=== PATIENT | female | born 1960 | race African-American/Black ===

== ENCOUNTER → 2023-05-07 | Outpatient (CLI) | payer OTHER | END | disposition home or self-care (01) | LOC: RESCLI 05-06 13:03 → RAD 10:42 | PROVIDERS: ATTEND Internal Medicine | DX: M16.0 Bilateral primary osteoarthritis of hip (principal); M17.12 Unilateral primary osteoarthritis, left knee; M77.52 Other enthesopathy of left foot and ankle; M19.072 Primary osteoarthritis, left ankle and foot; M25.572 Pain in left ankle and joints of left foot; M70.62 Trochanteric bursitis, left hip; Z71.89 Other specified counseling; Z98.890 Other specified postprocedural states; Z90.49 Acquired absence of other specified parts of digestive tract; Z79.899 Other long term (current) drug therapy ==

== ENCOUNTER → 2023-05-08 | Outpatient (CLI) | payer OTHER ==
[2023-05-08 08:07] LABS: BASO % 0.4 % (0.0-1.0); EOS # 0.1 10*3/uL (0.0-0.4); EOS % 1.9 % (1.0-4.0); HEMATOCRIT 39.8 % (37.0-47.0); LYMPH # 1.6 10*3/uL (1.3-4.4); LYMPH % 33.1 % (27.0-41.0); MEAN CELL VOLUME 85.2 fl (81.0-99.0); MEAN CORPUSCULAR HGB CONC 35.2 g/dl (33.0-37.0); MEAN PLATELET VOLUME 9.7 fl (9.6-12.3); MONO # 0.5 10*3/uL (0.1-1.0); MONO % 9.8 % (3.0-9.0); NEUT # 2.6 10*3/uL (2.3-7.9); NEUT % 54.6 % (47.0-73.0); PLATELET COUNT AUTOMATED 250 10*3/uL (130-400); RED BLOOD COUNT 4.67 10*6/uL (4.10-5.10); RED CELL DISTRI WIDTH 13.2 % (0-14.5); WHITE BLOOD COUNT 4.7 10*3/uL (4.8-10.8)
[2023-05-08 08:21] LABS: URINE CREATININE RANDOM 86.93 mg/dL
[2023-05-08 08:55] LABS: TOTAL PROTEIN 6.9 gm/dL (6.0-8.0); VITAMIN D, 25-HYDROXY 50.4 ng/mL (30-100)
== END | disposition home or self-care (01) ==
LOC: LAB 07:33
PROVIDERS: ATTEND Student in an Organized Health Care Education/Training Program
DX: Z71.89 Other specified counseling (principal)

== ENCOUNTER → 2023-07-02 | Outpatient (CLI) | payer OTHER | END | disposition home or self-care (01) | LOC: RESCLI 08:35 | PROVIDERS: ATTEND Family Medicine | DX: M70.62 Trochanteric bursitis, left hip (principal); M77.32 Calcaneal spur, left foot; M25.572 Pain in left ankle and joints of left foot; Z79.899 Other long term (current) drug therapy; Z90.49 Acquired absence of other specified parts of digestive tract; Z82.49 Family history of ischemic heart disease and other diseases of the circulatory system ==

== ENCOUNTER → 2023-09-15 | Outpatient (CLI) | payer OTHER | END | disposition home or self-care (01) | LOC: MRI 08:32 | PROVIDERS: ATTEND Podiatrist | DX: S91.011A Laceration without foreign body, right ankle, initial encounter (principal); S91.012A Laceration without foreign body, left ankle, initial encounter; M76.821 Posterior tibial tendinitis, right leg; M77.31 Calcaneal spur, right foot; M72.2 Plantar fascial fibromatosis; M65.871 Other synovitis and tenosynovitis, right ankle and foot; M67.471 Ganglion, right ankle and foot; M67.472 Ganglion, left ankle and foot; M65.872 Other synovitis and tenosynovitis, left ankle and foot; X58.XXXA Exposure to other specified factors, initial encounter; Y93.89 Activity, other specified; Y92.89 Other specified places as the place of occurrence of the external cause; Y99.8 Other external cause status; M77.32 Calcaneal spur, left foot ==